=== PATIENT | male | born 1995 | race American Indian/Alaskan Native ===

== ENCOUNTER 2017-09-05 20:32 | Emergency (ER) | payer OTHER ==
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
[2017-09-06] MEDS ORDERED: NORCO 5/325 PO ONE (00:40)
[2017-09-06] MEDS ORDERED: FLEXERIL PO ONE (00:40)
[2017-09-06 01:26] LABS: Anion Gap 16 mmol/L; BUN/Creatinine Ratio 11; Blood Urea Nitrogen 12 mg/dL (9-20); Carbon Dioxide 26 mmol/L (22-30); Chloride 99.5 mmol/L (98-107); Glucose 100 mg/dL (75-100); Potassium 3.8 mmol/L (3.6-5.0); Sodium 138 mmol/L (137-145)
[2017-09-06 01:34] LABS: Hematocrit 42.2 % (35.5-45.6); Hemoglobin 14.7 gm/dl (11.8-15.2); Mean Corpuscular HGB Conc 35 % (32-34); Mean Corpuscular Hemoglobin 32 pg (28-32); Mean Corpuscular Volume 92 fl (84-94); Platelet Count 168 K/mm3 (140-440); Red Blood Count 4.59 M/mm3 (3.65-5.03); Red Cell Distribution Width 14.1 % (13.2-15.2); White Blood Count 9.3 K/mm3 (4.5-11.0)
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
[2017-09-06] MEDS ORDERED: NACL ONE (02:08)
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
[2017-09-06 04:51] VITALS: BP 121/86
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
== END 2017-09-06 04:53 | disposition home or self-care (01) ==
LOC: ED 20:32
DX: S99.921A Unspecified injury of right foot, initial encounter (principal); S89.92XA Unspecified injury of left lower leg, initial encounter; V29.40XA Motorcycle driver injured in collision with unspecified motor vehicles in traffic accident, initial encounter; Y93.9 Activity, unspecified; Y99.9 Unspecified external cause status; Y92.410 Unspecified street and highway as the place of occurrence of the external cause
CPT/HCPCS: 36415; 70450; 71260; 72125; 73552; 73610; 73630; 74177; 80048; 85027; 99285; Q9967